=== PATIENT | female | born 1965 | race African-American/Black ===

== ENCOUNTER 2016-05-28 09:37 | Emergency (ER) | payer OTHER ==
[~2016-05-28] VITALS: Ht 162.6 cm; Wt 83.9 kg
[~2016-05-28 09:37] MED LIST: BUPR150T15 PO; HYDR-971 PO; LEVO125T5 PO; SERT50TA PO
[2016-05-28 10:39] VITALS: BP 149/86
[2016-05-28] MEDS ORDERED: HYDR-971 PO (11:10)
--- NOTE | 2016-05-28 11:12 | PHYS DOC ---
Past Medical History Past Medical History: Hypothyroid Additional Past Medical Histor: Radiation pill for thyroid. Past Surgical History: , Hysterectomy Additional Past Surgical Histo: PARTIAL HYSTERECTOMY Alcohol Use: None Drug Use: None Adult General Chief Complaint Chief Complaint: [facility] HPI Patient is a 51 year old female who presents emergency room with a complaint of ongoing, atraumatic right knee pain for several weeks. Patient states that she does have a history of osteoarthritis. She states that she has had a previous injection in her right knee by her primary care doctor. She states this was approximately a year ago. She states that it did provide some pain relief for a couple of weeks, but it has not completely helped her. Patient has not seen an orthopedic doctor in the past. Patient states that she is a [employer] and stays on her feet quite often. She does perform a lot of deep knee bending and kneeling, squatting and lifting as well. Review of Systems Review of Systems Constitutional: Denies fever or chills [] Eyes: Denies change in visual acuity, redness, or eye pain [] HENT: Denies nasal congestion or sore throat [] Respiratory: Denies cough or shortness of breath [] Cardiovascular: No additional information not addressed in HPI [] GI: Denies abdominal pain, nausea, vomiting, bloody stools or diarrhea [] : Denies dysuria or hematuria [] Musculoskeletal: Denies back pain or joint pain [] Integument: Denies rash or skin lesions [] Neurologic: Denies headache, focal weakness or sensory changes [] Endocrine: Denies polyuria or polydipsia [] Allergies Allergies Allergies Coded Allergies Type Severity Reaction Last Updated Verified Sulfa (Sulfonamide Antibiotics) Allergy Severe angioedema, hives 01/02/16 Yes Physical Exam Physical Exam Constitutional: Well developed, well nourished, no acute distress, non-toxic appearance. [] HENT: Normocephalic, atraumatic, bilateral external ears normal, oropharynx moist, no oral exudates, nose normal. [] Eyes: PERRLA, EOMI, conjunctiva normal, no discharge. [] Neck: Normal range of motion, no tenderness, supple, no stridor. [] Cardiovascular:Heart rate regular rhythm, no murmur [] Lungs & Thorax: Bilateral breath sounds clear to auscultation [] Abdomen: Bowel sounds normal, soft, no tenderness, no masses, no pulsatile masses. [] Skin: Warm, dry, no erythema, no rash. [] Back: No tenderness, no CVA tenderness. [] Extremities: Right knee is normal in appearance without fusiform swelling, erythema and is not hot to the touch. Patient does not have a high riding patella. Negative ballottement. Flexor and extensor mechanism is intact. There is lateral and medial joint line tenderness without palpable defect, deformity, instability or crepitus. Lower extremity is neurovascularly intact with capillary refill less than 2 seconds in her toes. Neurologic: Alert and oriented X 3, normal motor function, normal sensory function, no focal deficits noted. [] Psychologic: Affect normal, judgement normal, mood normal. [] Current Patient Data Vital Signs Vital Signs Date Time Temp Pulse Resp B/P Pulse Ox O2 Delivery O2 Flow Rate FiO2 05/28/16 10:39 97.7 90 20 100 Room Air 97.7 EKG EKG [] Radiology/Procedures Radiology/Procedures [] Course & Med Decision Making Course & Med Decision Making Pertinent Labs and Imaging studies reviewed. (See chart for details) [] Dragon Disclaimer Dragon Disclaimer This electronic medical record was generated, in whole or in part, using a voice recognition dictation system. Departure Departure Impression: Primary Impression: Knee pain, chronic Disposition: 01 HOME, SELF-CARE Condition: Referrals: VERONIKA VALENTINO (PCP) CISCO CROCKER II, MD Patient Instructions: Knee Pain, [id number], Osteoarthritis Additional Instructions: 1. Take the medication as prescribed. 2. Review the discharge instructions; particularly reasons to return to the emergency department. 3. An orthopedic doctors number is been provided to you for follow-up care. Be sure to call tomorrow to schedule an appointment. You may also choose to follow- up with your primary care doctor as well. 4. Avoid deep knee bending, kneeling and squatting is much as possible. Scripts Hydrocodone/Apap 5-325 ([place] 5-325 Tablet)1 Each Tablet1 Tab PO PRN Q6HRS PRN PAIN #15 TAB Prov:JUNIE PARKINSON 05/28/16 JUNIE PARKINSON May 28, 2016 11:12
== END 2016-05-28 11:44 | disposition home or self-care (01) ==
LOC: ER 09:37
DX: G89.29 Other chronic pain (principal); M25.561 Pain in right knee; E03.9 Hypothyroidism, unspecified; M19.90 Unspecified osteoarthritis, unspecified site; Z90.711 Acquired absence of uterus with remaining cervical stump; Z88.2 Allergy status to sulfonamides
CPT/HCPCS: 99283

== ENCOUNTER 2016-06-10 15:28 | Emergency (ER) | payer OTHER ==
[2016-06-10 15:31] VITALS: BP 169/88
[2016-06-10] MEDS ORDERED: PENI500T PO (15:45)
[2016-06-10] MEDS ORDERED: HYDR-971 PO (15:45)
--- NOTE | 2016-06-10 15:45 | PHYS DOC ---
Past Medical History Past Medical History: Hypothyroid Additional Past Medical Histor: Radiation pill for thyroid. Past Surgical History: , Hysterectomy Additional Past Surgical Histo: PARTIAL HYSTERECTOMY Additional Information: nonsmoker Alcohol Use: None Drug Use: None Adult General Chief Complaint Chief Complaint: DENTAL PROBLEM HPI HPI Patient is a 51 year old female who presents with left mandibular dental pain for 3 days. The affected tooth was previously broken, but her pain increased when she was chewing gum. She has an appointment with a dentist in 2 days to have the tooth extracted. She denies fever or swelling of the gums. She has been taking ibuprofen without relief of her pain. Her PCP is Dr. Valentino. Review of Systems Review of Systems Constitutional: Denies fever or chills. [] Eyes: Denies change in visual acuity, redness, or eye pain. [] HENT: Denies ear pain, nasal congestion or sore throat. Reports dental pain. Integument: Denies rash or skin lesions. [] Neurologic: Denies headache, focal weakness or sensory changes. [] Allergies Allergies Allergies Coded Allergies Type Severity Reaction Last Updated Verified Sulfa (Sulfonamide Antibiotics) Allergy Severe angioedema, hives 01/02/16 Yes Physical Exam Physical Exam Constitutional: Well developed, well nourished, no acute distress, non-toxic appearance. [] HENT: Normocephalic, atraumatic, bilateral external ears normal, oropharynx moist, no oral exudates, nose normal. Bilateral TMs without erythema or bulging. There is no posterior pharyngeal erythema or tonsillar edema. Tooth # 19 is broken and tender without surrounding gingival edema or dental abscess. Eyes: PERRLA, EOMI, conjunctiva normal, no discharge. [] Neck: Normal range of motion, no tenderness, supple, no stridor. [] Skin: Warm, dry, no erythema, no rash. [] Neurologic: Alert and oriented X 3, normal motor function, normal sensory function, no focal deficits noted. [] Psychologic: Affect normal, judgement normal, mood normal. [] Current Patient Data Vital Signs Vital Signs Date Time Temp Pulse Resp B/P Pulse Ox O2 Delivery O2 Flow Rate FiO2 06/10/16 15:31 98.1 96 22 100 Room Air 98.1 EKG EKG [] Radiology/Procedures Radiology/Procedures [] Course & Med Decision Making Course & Med Decision Making Pertinent Labs and Imaging studies reviewed. (See chart for details) [] Dragon Disclaimer Dragon Disclaimer This electronic medical record was generated, in whole or in part, using a voice recognition dictation system. Departure Departure Impression: Primary Impression: Pain, dental Disposition: 01 HOME, SELF-CARE Condition: STABLE Referrals: VERONIKA VALENTINO (PCP) Patient Instructions: Dental Fracture, Dental Pain, [id number] Additional Instructions: Please complete all of the prescribed antibiotics, even if you are feeling better. Please take the prescribed pain medication as directed. Do not drive or operate heavy machinery while taking pain medication. Please follow up with the dentist as previously scheduled to have your tooth extracted. Return to the emergency department if you have any new or concerning symptoms. Scripts Hydrocodone/Apap 5-325 ([place] 5-325 Tablet)1 Each Tablet1 Tab PO PRN Q6HRS PRN PAIN #15 TAB Prov:AYSHA HERNANDEZ 06/10/16 Penicillin V Potassium 500 Mg Tablet1 Tab PO TID #30 TAB Prov:AYSHA HERNANDEZ 06/10/16 AYSHA HERNANDEZ Jun 10, 2016 15:45
== END 2016-06-10 15:58 | disposition home or self-care (01) ==
LOC: ER 15:28
DX: K08.89 Other specified disorders of teeth and supporting structures (principal); Z88.2 Allergy status to sulfonamides; E03.9 Hypothyroidism, unspecified
CPT/HCPCS: 99283

== ENCOUNTER 2016-07-01 14:54 | Emergency (ER) | payer OTHER ==
[~2016-07-01 14:54] MED LIST changes: +PENI500T PO
[2016-07-01 15:37] VITALS: BP 148/91
[2016-07-01] MEDS ORDERED: AMOX500C PO (15:51)
[2016-07-01] MEDS ORDERED: HYDR-971 PO (15:51)
--- NOTE | 2016-07-01 15:51 | PHYS DOC ---
Past Medical History Past Medical History: Hypothyroid Additional Past Medical Histor: Radiation pill for thyroid. Past Surgical History: , Hysterectomy Additional Past Surgical Histo: PARTIAL HYSTERECTOMY Alcohol Use: None Drug Use: None Adult General Chief Complaint Chief Complaint: DENTAL PROBLEM HPI HPI Patient is a 51 year old female presents the emergency department with complaint of ongoing left-sided lower jaw and dental pain for approximately week. Patient does have a history of dental caries. Patient was actually seen here June 10 with the same complaint. She states that she went to [facility] and was advised that she needs to see an oral surgeon to remove the tooth. Review of Systems Review of Systems Constitutional: Denies fever or chills [] Eyes: Denies change in visual acuity, redness, or eye pain [] HENT: Denies nasal congestion or sore throat [] Respiratory: Denies cough or shortness of breath [] Cardiovascular: No additional information not addressed in HPI [] GI: Denies abdominal pain, nausea, vomiting, bloody stools or diarrhea [] : Denies dysuria or hematuria [] Musculoskeletal: Denies back pain or joint pain [] Integument: Denies rash or skin lesions [] Neurologic: Denies headache, focal weakness or sensory changes [] Endocrine: Denies polyuria or polydipsia [] Allergies Allergies Allergies Coded Allergies Type Severity Reaction Last Updated Verified Sulfa (Sulfonamide Antibiotics) Allergy Severe angioedema, hives 01/02/16 Yes Physical Exam Physical Exam Constitutional: Well developed, well nourished, no acute distress, non-toxic appearance. [] HENT: Normocephalic, atraumatic, bilateral external ears normal, oropharynx moist, no oral exudates, nose normal. There is no trismus. Patient's dentition is otherwise in good repair. Patient does have a cavity in the second left mandibular molar. There is no purulent drainage. There is no surrounding gingival swelling or abscess. Eyes: PERRLA, EOMI, conjunctiva normal, no discharge. [] Neck: Normal range of motion, no tenderness, supple, no stridor. [] Cardiovascular:Heart rate regular rhythm, no murmur [] Lungs & Thorax: Bilateral breath sounds clear to auscultation [] Abdomen: Bowel sounds normal, soft, no tenderness, no masses, no pulsatile masses. [] Skin: Warm, dry, no erythema, no rash. [] Back: No tenderness, no CVA tenderness. [] Extremities: No tenderness, no cyanosis, no clubbing, ROM intact, no edema. [] Neurologic: Alert and oriented X 3, normal motor function, normal sensory function, no focal deficits noted. [] Psychologic: Affect normal, judgement normal, mood normal. [] Current Patient Data Vital Signs Vital Signs Date Time Temp Pulse Resp B/P Pulse Ox O2 Delivery O2 Flow Rate FiO2 07/01/16 15:37 98.0 83 18 100 Room Air 98.0 EKG EKG [] Radiology/Procedures Radiology/Procedures [] Course & Med Decision Making Course & Med Decision Making Pertinent Labs and Imaging studies reviewed. (See chart for details) [] Dragon Disclaimer Dragon Disclaimer This electronic medical record was generated, in whole or in part, using a voice recognition dictation system. Departure Departure Impression: Primary Impression: Pain, dental Additional Impression: Dental caries Disposition: HOME, SELF-CARE Condition: GOOD Referrals: VERONIKA VALENTINO (PCP) Patient Instructions: Dental Caries-Brief, Dental Pain, [id number] Additional Instructions: 1. Take the medication as prescribed. 2. Use the dental resource sheet to schedule an appointment so that she may receive definitive dental care. 3. Follow-up with your primary care doctor for any possible refills on medications. 4. Review the discharge instructions provided for self-care and reasons to return to the emergency department. Scripts Amoxicillin 500 Mg Capsule1 Cap PO TID #30 CAP Prov:JUNIE PARKINSON 07/01/16 Hydrocodone/Apap 5-325 ([place] 5-325 Tablet)1 Each Tablet1 Tab PO PRN Q6HRS PRN PAIN #15 TAB Prov:JUNIE PARKINSON 07/01/16 Problem Qualifiers JUNIE PARKINSON Jul 01, 2016 15:51
== END 2016-07-01 16:05 | disposition home or self-care (01) ==
LOC: ER 14:54
DX: K02.9 Dental caries, unspecified (principal); K08.89 Other specified disorders of teeth and supporting structures; R68.84 Jaw pain; E03.9 Hypothyroidism, unspecified; Z88.2 Allergy status to sulfonamides
CPT/HCPCS: 99283

== ENCOUNTER 2016-12-10 21:32 | Emergency (ER) | payer SELFPAY ==
[~2016-12-10] VITALS: Ht 162.6 cm; Wt 83.9 kg
[~2016-12-10 21:32] MED LIST changes: +AMOX500C PO
[2016-12-10 22:50] VITALS: BP 149/80
[2016-12-10] MEDS ORDERED: HYDR-971 PO (23:44)
[2016-12-10] MEDS ORDERED: CYCL5TAB PO (23:44)
--- NOTE | 2016-12-10 23:45 | PHYS DOC ---
Past Medical History Past Medical History: Hypothyroid, Other Additional Past Medical Histor: Radiation pill for thyroid. Past Surgical History: , Hysterectomy Additional Past Surgical Histo: PARTIAL HYSTERECTOMY Alcohol Use: None Drug Use: None Adult General Chief Complaint Chief Complaint: LOWER BACK PAIN OR INJURY HPI HPI Patient is a 51 year old female who presents with lower back pain. She states yesterday she was doing squats & felt sudden muscle strain in her lower back. She has had bilateral lower back pain since that time. No fall. Reports sharp pain radiating down her legs. She denies fevers/chills, abdominal pain, dysuria /hematuria, bowel/bladder incontinence/retention, saddle anesthesia, lower extremity numbness/weakness. She has history of similar injury with sciatica & this feels similar. No previous back surgery. Review of Systems Review of Systems Constitutional: Denies fever or chills HENT: Denies nasal congestion or sore throat Respiratory: Denies cough or shortness of breath Cardiovascular: Denies chest pain GI: Denies abdominal pain, nausea, vomiting : Denies dysuria or hematuria Musculoskeletal: Reports back pain Integument: Denies rash or skin lesions Neurologic: Denies headache, focal weakness or sensory changes Allergies Allergies Allergies Coded Allergies Type Severity Reaction Last Updated Verified Sulfa (Sulfonamide Antibiotics) Allergy Severe angioedema, hives 01/02/16 Yes Physical Exam Physical Exam Constitutional: Well developed, well nourished, no acute distress, non-toxic appearance. HENT: Normocephalic, atraumatic, bilateral external ears normal, oropharynx moist, nose normal. Eyes: conjunctiva normal, no discharge. Cardiovascular: RRR, no murmurs, no edema. Lungs & Thorax: LCTAB, no wheezing, no respiratory distress. Abdomen: soft, nontender, nondistended. Skin: Warm, dry, no erythema, no rash. Back: generalized lumbar tenderness without focal spinal tenderness, no step offs, pain predominantly in paraspinous muscles bilaterally, increases with bilateral straight leg raise. Extremities: dp/pt 2+ bilaterally, symmetric strength/sensation to LE. Neurologic: Alert and oriented X 3, no focal deficits noted. Psychologic: Affect normal, judgement normal, mood normal. Current Patient Data Vital Signs Vital Signs Date Time Temp Pulse Resp B/P (MAP) Pulse Ox O2 Delivery O2 Flow Rate FiO2 12/10/16 22:50 98.4 73 18 100 Room Air 98.4 EKG EKG [] Radiology/Procedures Radiology/Procedures [] Course & Med Decision Making Course & Med Decision Making Pertinent Labs and Imaging studies reviewed. (See chart for details) The patient presents with lower back pain. No trauma to suggest bony injury. Recommend supportive care with rest, hydration, ibuprofen q8 hours, flexeril for muscle spasm & norco for pain. No drinking alcohol or driving while taking norco. Follow up with PCP in 1-2 weeks if not improving. Come back for symptoms of cauda equina syndrome or otherwise worsening condition. Discharged home in stable condition. [] Dragon Disclaimer Dragon Disclaimer This electronic medical record was generated, in whole or in part, using a voice recognition dictation system. Departure Departure Impression: Primary Impression: Lumbar strain Disposition: 01 HOME, SELF-CARE Condition: STABLE Referrals: VERONIKA VALENTINO (PCP) Patient Instructions: Low Back Strain with Rehab-SportsMed Additional Instructions: You were seen in the emergency department today for back strain. This will likely get better on its own. Please rest, apply heating pad or ice, take ibuprofen 600 mg every 8 hours, use Flexeril for muscle spasm and Tye for severe pain. No drinking alcohol or driving while taking Tye. Follow-up with primary care physician in one to 2 weeks if not improving. Return to the emergency department for loss of control of bowels or bladder, numbness or weakness in arms or legs, any otherwise worsening condition. Scripts Hydrocodone/Apap 5-325 (NORCO 5-325 TABLET) 1 Each Tablet 1 TAB PO PRN Q6HRS Y for PAIN, #10 TAB 0 Refills Prov: MIRIAN NEIL MD 12/10/16 Cyclobenzaprine Hcl (CYCLOBENZAPRINE HCL) 5 Mg Tablet 1 TAB PO TID Y for MUSCLE SPASMS, #10 TAB Prov: MIRIAN NEIL MD 12/10/16 MIRIAN NEIL MD Dec 10, 2016 23:45
== END 2016-12-11 00:09 | disposition home or self-care (01) ==
LOC: ER 21:32
DX: S39.012A Strain of muscle, fascia and tendon of lower back, initial encounter (principal); E03.9 Hypothyroidism, unspecified; Z88.2 Allergy status to sulfonamides; X58.XXXA Exposure to other specified factors, initial encounter; Y93.89 Activity, other specified; Y92.89 Other specified places as the place of occurrence of the external cause; Y99.8 Other external cause status
CPT/HCPCS: 99283

== ENCOUNTER 2017-03-08 15:01 | Inpatient (IN) | payer SELFPAY ==
[~2017-03-08] VITALS: Ht 162.6 cm; Wt 79.0 kg
[~2017-03-08 15:01] MED LIST changes: +CYCL5TAB PO
--- NOTE | 2017-03-08 15:28 | EKG ---
[facility] [address] [place] [address] Test Date: 2017-03-08 Test Time: 15:14:10 Pat Name: HERB HARMAN Department: Room: Gender: F Intake Coordinator: : 1965 Requested By: AYSHA DOAN Order Number: [id number] Reading MD: Measurements Intervals [place] Rate: 124 P: 40 OK: 144 QRS: 18 QRSD: 82 T: 43 QT: 316 QTc: 458 Interpretive Statements SINUS TACHYCARDIA OTHERWISE NORMAL ECG RI6.01 Unconfirmed report No previous ECG available for comparison
[2017-03-08] MEDS ORDERED: IV NORMAL SALINE 1000ML BAG 1,000 ML IV ONE ×2 (15:30→18:15)
[2017-03-08 15:49] LABS: BARBITURATES NEG (NEG); BENZODIAZEPINES NEG (NEG); CANNABINOIDS NEG (NEG); COCAINE NEG (NEG); METHADONE NEG (NEG); OPIATES POS (NEG); PHENCYCLIDINE NEG (NEG)
[2017-03-08 15:51] LABS: BASO # 0.1 x10^3/uL (0.0-0.2); BASO % 1 % (0-3); EOS % 1 % (0-3); HEMATOCRIT 29.1 % (36.0-47.0); HEMOGLOBIN 9.6 g/dL (12.0-15.5); LYMPH % 27 % (24-48); MEAN CORPUSCULAR HEMOGLOBIN 28 pg (25-35); MEAN CORPUSCULAR HGB CONC 33 g/dL (31-37); MEAN CORPUSCULAR VOLUME 86 fL (79-100); MONO % 8 % (0-9); NEUT % 63 % (31-73); PLATELET COUNT 370 x10^3/uL (140-400); RED BLOOD COUNT 3.39 x10^6/uL (3.50-5.40); WHITE BLOOD COUNT 7.4 x10^3/uL (4.0-11.0)
[2017-03-08 16:04] LABS: INR 1.1 (0.8-1.1); PROTHROMBIN TIME PATIENT 13.7 SEC (11.7-14.0)
[2017-03-08 16:07] LABS: CALCIUM 9.3 mg/dL (8.5-10.1); POTASSIUM 3.5 mmol/L (3.5-5.1)
--- NOTE | 2017-03-08 16:08 | RAD ---
Indication seizures. Suspect aspiration pneumonia. Protocol study. A single view of the chest was obtained. Comparison is made to a study 07/13/2010. The heart and pulmonary vessels appear normal. The lungs are clear. There is no pleural fluid or pneumothorax. The bony structures appear grossly intact. A significant change in the appearance of the chest compared to the previous exam is not seen. IMPRESSION: No acute or focal process is seen in the chest.
--- NOTE | 2017-03-08 16:21 | RAD ---
CT HEAD WITHOUT [id number]/19/2017 5:17 PM Indication: Possible seizure. Comparison: None Procedure: Multidetector CT imaging of the head was performed without the administration of contrast. Findings: There is no evidence of acute intracranial hemorrhage. There is no evidence of acute territorial infarction. Please note that CT is limited for evaluation of acute ischemia. No mass effect or midline shift is identified . The ventricles and basilar cisterns have an appropriate appearance. No abnormal extra-axial fluid collections are seen. No acute osseous changes are identified. Impression: No evidence of acute intracranial abnormality PQRS Compliance Statement: One or more of the following individualized dose reduction techniques were utilized for this examination: 1. Automated exposure control 2. Adjustment of the mA and/or kV according to patient size 3. Use of iterative reconstruction technique
[2017-03-08 16:24] LABS: ALBUMIN 3.7 g/dL (3.4-5.0); TOTAL BILIRUBIN 0.1 mg/dL (0.2-1.0); TOTAL PROTEIN 7.4 g/dL (6.4-8.2)
[2017-03-08] MEDS ORDERED: ACETAMINOPHEN 325 MG TABLET. PO PRN (18:15)
[2017-03-08] MEDS ORDERED: ACETAMINOPHEN 500 MG TABLET PO ONE (18:15)
[2017-03-08] MEDS ORDERED: ONDANSETRON PF 4 MG/2 ML VIAL. IV PRN (18:15)
[2017-03-08 19:30] VITALS: BP 148/95
[2017-03-08] MEDS: levETIRAcetam 500 MG TABLET PO SCH (19:59)
[2017-03-08] MEDS: IV NORMAL SALINE 1000ML BAG 1,000 ML IV SCH (20:00)
--- NOTE | 2017-03-08 20:01 | ED.ADGEN ---
Past Medical History Past Medical History: Hypothyroid, Other Additional Past Medical Histor: Radiation pill for thyroid. Past Surgical History: , Hysterectomy Additional Past Surgical Histo: PARTIAL HYSTERECTOMY Alcohol Use: None Drug Use: None Adult General Chief Complaint Chief Complaint: SEIZURE HPI HPI Patient is a 51 year old woman history of thyroid ablation several years ago due to hyperthyroidism, currently on Synthroid, who presents emergency Department with a report of a possible seizure. Per report of patient's significant other at bedside, patient was a seated passenger in the front seat of the vehicle, he states he looked over and saw the patient "rigid and shaking ", patient was unresponsive that time. He states that this episode of rigidity lasted for a few moments, and patient then experienced some confusion. Upon arrival to the emergency department, patient is awake alert and oriented 3, moving all extremities, complaining of headache and of "feeling really tired". Patient states the headache is located in the frontal region, denies any weakness, numbness, tingling has experienced no loss of bowel or bladder control , no injuries, no chest pain or shortness breath, states that she was feeling well until the episode occurred. No history of seizure disorder, denies any injuries, any recent travel or surgery, any swelling of the extremities, any sick contacts or exposures, any neck pain, any drugs, alcohol or cigarettes. Review of Systems Review of Systems Constitutional: Denies fever or chills. []Fatigue. Eyes: Denies change in visual acuity. [] HENT: Denies nasal congestion or sore throat. [] Respiratory: Denies cough or shortness of breath. [] Cardiovascular: Denies chest pain or edema. [] GI: Denies abdominal pain, nausea, vomiting, bloody stools or diarrhea. [] : Denies dysuria. [] Musculoskeletal: Denies back pain or joint pain. [] Integument: Denies rash. [] Neurologic: Denies focal weakness or sensory changes. [] Frontal headache, possible seizure activity. Endocrine: Denies polyuria or polydipsia. [] Lymphatic: Denies swollen glands. [] Psychiatric: Denies depression or anxiety. [] Current Medications Current Medications Current Medications Medications (Trade) Dose Ordered Sig/Evelyne Start Time Stop Time Status Last Admin Dose Admin Sodium Chloride 1,000 ml @ 1,000 mls/hr 1X ONCE 03/08/17 15:30 03/08/17 16:29 DC 03/08/17 15:29 1,000 MLS/HR Allergies Allergies Allergies Coded Allergies Type Severity Reaction Last Updated Verified Sulfa (Sulfonamide Antibiotics) Allergy Severe angioedema, hives 01/02/16 Yes Physical Exam Physical Exam Constitutional: Well developed, well nourished, no acute distress, non-toxic appearance. [] HENT: Normocephalic, atraumatic, bilateral external ears normal, oropharynx moist, no oral exudates, nose normal. [] Eyes: PERRLA, EOMI, conjunctiva normal, no discharge. [] Neck: Normal range of motion, no tenderness, supple, no stridor. [] Cardiovascular:Heart rate regular rhythm, no murmur, S1, S2, no rubs or gallops , tachycardic. [] Lungs & Thorax: Bilateral breath sounds clear to auscultation, no wheezing, rhonchi, rales. No chest wall crepitus or tenderness. [] Abdomen: Bowel sounds normal, soft, no tenderness, no rebound, no rigidity, no guarding, no masses, no pulsatile masses. [] Skin: Warm, dry, no erythema, no rash. [] Back: No tenderness, no CVA tenderness. [] Extremities: No tenderness, no cyanosis, no clubbing, ROM intact, no edema. Negative Homans sign.[] Neurologic: Alert and oriented X 3, normal motor function, normal sensory function, no focal deficits noted. []5 out of 5 strength in all extremities, normal sensation, normal cranial nerves. Psychologic: Affect normal, judgement normal, mood normal. [] Current Patient Data Vital Signs Vital Signs Date Time Temp Pulse Resp B/P (MAP) Pulse Ox O2 Delivery O2 Flow Rate FiO2 03/08/17 17:09 100 99 03/08/17 15:39 20 03/08/17 15:03 98.1 119/80 (93) Room Air 98.1 Lab Values Laboratory Tests Test 03/08/17 15:17 03/08/17 15:33 03/08/17 15:41 White Blood Count 7.4 x10^3/uL (4.0-11.0) Red Blood Count 3.39 x10^6/uL (3.50-5.40) L Hemoglobin 9.6 g/dL (12.0-15.5) L Hematocrit 29.1 % (36.0-47.0) L Mean Corpuscular Volume 86 fL (79-100) Mean Corpuscular Hemoglobin 28 pg (25-35) Mean Corpuscular Hemoglobin Concent 33 g/dL (31-37) Red Cell Distribution Width 12.0 % (11.5-14.5) Platelet Count 370 x10^3/uL (140-400) Neutrophils (%) (Auto) 63 % (31-73) Lymphocytes (%) (Auto) 27 % (24-48) Monocytes (%) (Auto) 8 % (0-9) Eosinophils (%) (Auto) 1 % (0-3) Basophils (%) (Auto) 1 % (0-3) Neutrophils # (Auto) 4.7 x10^3uL (1.8-7.7) Lymphocytes # (Auto) 2.0 x10^3/uL (1.0-4.8) Monocytes # (Auto) 0.6 x10^3/uL (0.0-1.1) Eosinophils # (Auto) 0.1 x10^3/uL (0.0-0.7) Basophils # (Auto) 0.1 x10^3/uL (0.0-0.2) Prothrombin Time 13.7 SEC (11.7-14.0) Prothrombin Time INR 1.1 (0.8-1.1) PTT 29 SEC (24-38) Troponin I Quantitative < 0.017 ng/mL (0.000-0.055) Urine Opiates Screen Pos (NEG) Urine Methadone Screen Neg (NEG) Urine Barbiturates Neg (NEG) Urine Phencyclidine Screen Neg (NEG) Urine Amphetamine/Methamphetamine Neg (NEG) Urine Benzodiazepines Screen Neg (NEG) Urine Cocaine Screen Neg (NEG) Urine Cannabinoids Screen Neg (NEG) Urine Ethyl Alcohol Neg (NEG) Sodium Level 140 mmol/L (136-145) Potassium Level 3.5 mmol/L (3.5-5.1) Chloride Level 102 mmol/L (98-107) Carbon Dioxide Level 23 mmol/L (21-32) Anion Gap 15 (6-14) H Blood Urea Nitrogen 14 mg/dL (7-20) Creatinine 1.0 mg/dL (0.6-1.0) Estimated GFR (Cockcroft-Gault) 71.0 BUN/Creatinine Ratio 14 (6-20) Glucose Level 99 mg/dL (70-99) Lactic Acid Level 5.8 mmol/L (0.4-2.0) *H Calcium Level 9.3 mg/dL (8.5-10.1) Total Bilirubin 0.1 mg/dL (0.2-1.0) L Aspartate Amino Transferase (AST) 16 U/L (15-37) Alanine Aminotransferase (ALT) 20 U/L (14-59) Alkaline Phosphatase 55 U/L (46-116) Total Protein 7.4 g/dL (6.4-8.2) Albumin 3.7 g/dL (3.4-5.0) Albumin/Globulin Ratio 1.0 (1.0-1.7) Thyroid Stimulating Hormone (TSH) 0.212 uIU/mL (0.358-3.74) L Laboratory Tests 03/08/17 15:17 Laboratory Tests 03/08/17 15:41 EKG EKG EC: Sinus tachycardia, heart rate 124 beats/minute, upright axis, QTC of 458, MI 144, QR sedated 82, no ST elevations or depressions, no evidence of acute ST abnormalities aside from sinus tachycardia normal ECG. As interpreted by me. Radiology/Procedures Radiology/Procedures [][facility] [address] [place] [address] IMAGING REPORT Signed PATIENT: HERB HARMAN ACCOUNT: [id number] : 1965 LOCATION: ER AGE: 51 SEX: F EXAM STATUS: REG ER ORD. PHYSICIAN: AYSHA DOAN DO REASON: ? HAZEL PROCEDURE: CT HEAD WO CONTRAST CT HEAD WITHOUT [id number]/19/2017 5:17 PM Indication: Possible seizure. Comparison: None Procedure: Multidetector CT imaging of the head was performed without the administration of contrast. Findings: There is no evidence of acute intracranial hemorrhage. There is no evidence of acute territorial infarction. Please note that CT is limited for evaluation of acute ischemia. No mass effect or midline shift is identified . The ventricles and basilar cisterns have an appropriate appearance. No abnormal extra-axial fluid collections are seen. No acute osseous changes are identified. Impression: No evidence of acute intracranial abnormality PQRS Compliance Statement: One or more of the following individualized dose reduction techniques were utilized for this examination: 1. Automated exposure control 2. Adjustment of the mA and/or kV according to patient size 3. Use of iterative reconstruction technique [facility] [address] [place] [address] IMAGING REPORT Signed PATIENT: HERB HARMAN ACCOUNT: [id number] : 1965 LOCATION: ER AGE: 51 SEX: F EXAM STATUS: REG ER ORD. PHYSICIAN: AYSHA DOAN DO REASON: ? HAZEL PROCEDURE: CT HEAD WO CONTRAST CT HEAD WITHOUT [id number]/19/2017 5:17 PM Indication: Possible seizure. Comparison: None Procedure: Multidetector CT imaging of the head was performed without the administration of contrast. Findings: There is no evidence of acute intracranial hemorrhage. There is no evidence of acute territorial infarction. Please note that CT is limited for evaluation of acute ischemia. No mass effect or midline shift is identified . The ventricles and basilar cisterns have an appropriate appearance. No abnormal extra-axial fluid collections are seen. No acute osseous changes are identified. Impression: No evidence of acute intracranial abnormality PQRS Compliance Statement: One or more of the following individualized dose reduction techniques were utilized for this examination: 1. Automated exposure control 2. Adjustment of the mA and/or kV according to patient size 3. Use of iterative reconstruction technique DICTATED and SIGNED BY: MICKEY GU MD DATE: 03/08/17 1884 CC: VERONIKA VALENTINO; AYSHA DOAN DO ~ Course & Med Decision Making Course & Med Decision Making Pertinent Labs and Imaging studies reviewed. (See chart for details) Patient's report of events preceding arrival in the ED are concerning for new onset seizure. Seizure precautions placed, patient received CT of the head, laboratory studies reveal a revealed a lactic of 5.8, with no evidence of infection or other cause. Patient received normal saline IV in the emergency department, states she is feeling much better and reevaluation, neurologic examination remains unremarkable. I did discuss findings as above with Dr. White of neurology, and Dr. Mc on-call for the patient's primary care provider. Patient was accepted as a full admission to Dr. Mc's service, to the medical telemetry floor, per recommendations from neurology, patient initiated on Keppra 500 mg to be given twice a day, first dose in the ED, order placed for EEG and MRI be obtained in the morning. I did discuss all these recommendations as above with the patient, who is agreeable to plan for admission. Repeat lactic ordered, along with and laboratory studies, bridge orders entered per discussion. Patient remained stable and comfortable without recurrence concerning symptoms at time of transfer to the floor. Dragon Disclaimer Dragon Disclaimer This electronic medical record was generated, in whole or in part, using a voice recognition dictation system. Departure Impression: Primary Impression: New onset seizure Additional Impression: Lactic acidosis Disposition: ADMITTED INPATIENT Admitting Physician: Jake Mc Condition: STABLE Problem Qualifiers AYSHA DOAN DO Mar 08, 2017 20:01
[2017-03-08 23:26] VITALS: BP 139/81
[2017-03-08] MEDS ORDERED: TRAM50TA PO (23:34)
[2017-03-09 03:00] VITALS: BP 137/88
[2017-03-09] MEDS: IV NORMAL SALINE 1000ML BAG 1,000 ML IV SCH ×2 (03:29→10:14)
[2017-03-09 05:18] LABS: BASO # 0.1 x10^3/uL (0.0-0.2); BASO % 1 % (0-3); EOS % 1 % (0-3); HEMATOCRIT 29.1 % (36.0-47.0); HEMOGLOBIN 9.4 g/dL (12.0-15.5); LYMPH # 1.9 x10^3/uL (1.0-4.8); LYMPH % 28 % (24-48); MEAN CORPUSCULAR HEMOGLOBIN 28 pg (25-35); MEAN CORPUSCULAR HGB CONC 32 g/dL (31-37); MEAN CORPUSCULAR VOLUME 87 fL (79-100); MONO % 11 % (0-9); NEUT % 60 % (31-73); PLATELET COUNT 346 x10^3/uL (140-400); RED BLOOD COUNT 3.36 x10^6/uL (3.50-5.40); RED CELL DISTRIBUTION WIDTH 12.5 % (11.5-14.5); WHITE BLOOD COUNT 6.8 x10^3/uL (4.0-11.0)
[2017-03-09 05:40] LABS: CALCIUM 8.3 mg/dL (8.5-10.1); CREATININE 0.8 mg/dL (0.6-1.0); GFR 91.9; POTASSIUM 3.2 mmol/L (3.5-5.1)
[2017-03-09 07:15] VITALS: BP 122/74
[2017-03-09] MEDS: levETIRAcetam 500 MG TABLET PO SCH (07:38)
--- NOTE | 2017-03-09 08:44 | PDOC2 ---
NEUROLOGY CONSULT Date of Admission Date of Admission DATE: 03/09/17 TIME: 08:40 Reason for Consult Reason for Consult: Seizure Referring Physician Referring Physician: Dr. Mc Source Source: Caregiver, Chart review, Patient History of Present Illness History of Present Illness The patient is a 51-year-old right-handed female with no prior history of seizures and had a seizure yesterday. The gives an excellent description of a tonic phase followed by clonic convulsions. The seizure lasted 2-5 minutes. There was some tongue biting but no incontinence. The patient denies any history of head injury or stroke. She has been on Wellbutrin for several years as well as hydrocodone. She denies use of alcohol or street drugs. Past Medical History Musculoskeletal: Osteoarthritis (knees) Endocrine: Hypothyroidism (following thyroid ablation) Past Surgical History Past Surgical History: , Hysterectomy Family History Family History: No pertinent hx (negative for seizures) Social History Social History , no alcohol or street drugs Current Medications Current Medications Current Medications Sodium Chloride 1,000 ml @ 1,000 mls/hr 1X ONCE IV Last administered on 03/08 15:29; Start 03/08/17 at 15:30; Stop 03/08/17 at 16:29; Status DC Acetaminophen (Tylenol) 1,000 mg 1X ONCE PO Last administered on 03/08/17 19 :59; Start 03/08/17 at 18:15; Stop 03/08/17 at 18:16; Status DC Sodium Chloride 1,000 ml @ 1,000 mls/hr 1X ONCE IV Last administered on 03/08 18:15; Start 03/08/17 at 18:15; Stop 03/08/17 at 19:14; Status DC Levetiracetam (Keppra) 500 mg BID PO Last administered on 03/09/17 07:38; Start 03/08/17 at 21:00 Ondansetron HCl (Zofran) 4 mg PRN Q8HRS PRN IV NAUSEA/VOMITING; Start at 18:15; Stop 03/09/17 at 18:14 Sodium Chloride 1,000 ml @ 125 mls/hr Q8H IV Last administered on 03/09/17 03:29; Start 03/08/17 at 18:14; Stop 03/09/17 at 18:13 Acetaminophen (Tylenol) 650 mg PRN Q4HRS PRN PO FEVER Last administered on t 07:38; Start 03/08/17 at 18:15; Stop 03/09/17 at 18:14 Active Scripts Active Reported Tramadol Hcl 50 Mg Tablet 1 Tab PO PRN BID PRN Levothyroxine Sodium 125 Mcg Tablet 125 Mcg PO DAILY Allergies Allergies: Coded Allergies: Sulfa (Sulfonamide Antibiotics) (Verified Allergy, Severe, angioedema, hives, 01/02/16) ROS Review of System Patient denies fevers, chills, weight loss, dyspnea, angina, abdominal pain, change in bowels, or dysuria. 14 point review of systems is negative. Physical Exam Physical Examination PHYSICAL EXAMINATION: Vital signs: see above. General appearance is normal and in no acute distress. HEENT: Normocephalic and nontraumatic. Eyes, nose, ears, and throat are unremarkable. Neck is supple. No lymphadenopathy. No bruits are heard over the carotid artery. No crepitus. NEUROLOGICAL EXAMINATION: Mental Status Examination: Alert. Oriented to time, place, and person. Answers questions and follows commends. Pupils are equal round and reactive to light and accommodation. Extraocular movements are intact. Visual field exam shows no defect on the direct confrontation. No motor or sensory deficits on the facial exam. Uvula in the midline and the soft palate elevated symmetrically. No deviation of the tongue to any direction. Gross hearing is normal. Shoulder shrug normal. Muscle tone is normal. Muscle strength is 5. Deep tendon reflexes are 2+ all around. Plantar reflex is with flexion response bilaterally. [id number]-[id number] test performance is accurate. Tandem walk test is accurate. Alternative movements are accurate. Romberg test is negative. Gait is normal. Sensory exam shows no deficits. No cerebellar signs are elicited. Vitals VITALS Vital Signs Date Time Temp Pulse Resp B/P (MAP) Pulse Ox O2 Delivery O2 Flow Rate FiO2 03/09/17 07:45 Room Air 03/09/17 07:15 98.1 91 16 122/74 (90) 100 98.1 Labs Labs Laboratory Tests Test 03/08/17 15:17 03/08/17 15:33 03/08/17 15:41 03/09/17 04:40 White Blood Count 7.4 x10^3/uL (4.0-11.0) 6.8 x10^3/uL (4.0-11.0) Red Blood Count 3.39 x10^6/uL (3.50-5.40) 3.36 x10^6/uL (3.50-5.40) Hemoglobin 9.6 g/dL (12.0-15.5) 9.4 g/dL (12.0-15.5) Hematocrit 29.1 % (36.0-47.0) 29.1 % (36.0-47.0) Mean Corpuscular Volume 86 fL (79-100) 87 fL (79-100) Mean Corpuscular Hemoglobin 28 pg (25-35) 28 pg (25-35) Mean Corpuscular Hemoglobin Concent 33 g/dL (31-37) 32 g/dL (31-37) Red Cell Distribution Width 12.0 % (11.5-14.5) 12.5 % (11.5-14.5) Platelet Count 370 x10^3/uL (140-400) 346 x10^3/uL (140-400) Neutrophils (%) (Auto) 63 % (31-73) 60 % (31-73) Lymphocytes (%) (Auto) 27 % (24-48) 28 % (24-48) Monocytes (%) (Auto) 8 % (0-9) 11 % (0-9) Eosinophils (%) (Auto) 1 % (0-3) 1 % (0-3) Basophils (%) (Auto) 1 % (0-3) 1 % (0-3) Neutrophils # (Auto) 4.7 x10^3uL (1.8-7.7) 4.0 x10^3uL (1.8-7.7) Lymphocytes # (Auto) 2.0 x10^3/uL (1.0-4.8) 1.9 x10^3/uL (1.0-4.8) Monocytes # (Auto) 0.6 x10^3/uL (0.0-1.1) 0.8 x10^3/uL (0.0-1.1) Eosinophils # (Auto) 0.1 x10^3/uL (0.0-0.7) 0.1 x10^3/uL (0.0-0.7) Basophils # (Auto) 0.1 x10^3/uL (0.0-0.2) 0.1 x10^3/uL (0.0-0.2) Prothrombin Time 13.7 SEC (11.7-14.0) Prothromb Time International Ratio 1.1 (0.8-1.1) Activated Partial Thromboplast Time 29 SEC (24-38) Troponin I Quantitative < 0.017 ng/mL (0.000-0.055) Urine Opiates Screen Pos (NEG) Urine Methadone Screen Neg (NEG) Urine Barbiturates Neg (NEG) Urine Phencyclidine Screen Neg (NEG) Urine Amphetamine/Methamphetamine Neg (NEG) Urine Benzodiazepines Screen Neg (NEG) Urine Cocaine Screen Neg (NEG) Urine Cannabinoids Screen Neg (NEG) Urine Ethyl Alcohol Neg (NEG) Sodium Level 140 mmol/L (136-145) 142 mmol/L (136-145) Potassium Level 3.5 mmol/L (3.5-5.1) 3.2 mmol/L (3.5-5.1) Chloride Level 102 mmol/L (98-107) 108 mmol/L (98-107) Carbon Dioxide Level 23 mmol/L (21-32) 24 mmol/L (21-32) Anion Gap 15 (6-14) 10 (6-14) Blood Urea Nitrogen 14 mg/dL (7-20) 11 mg/dL (7-20) Creatinine 1.0 mg/dL (0.6-1.0) 0.8 mg/dL (0.6-1.0) Estimated GFR (Cockcroft-Gault) 71.0 91.9 BUN/Creatinine Ratio 14 (6-20) Glucose Level 99 mg/dL (70-99) 87 mg/dL (70-99) Lactic Acid Level 5.8 mmol/L (0.4-2.0) 1.3 mmol/L (0.4-2.0) Calcium Level 9.3 mg/dL (8.5-10.1) 8.3 mg/dL (8.5-10.1) Total Bilirubin 0.1 mg/dL (0.2-1.0) Aspartate Amino Transf (AST/SGOT) 16 U/L (15-37) Alanine Aminotransferase (ALT/SGPT) 20 U/L (14-59) Alkaline Phosphatase 55 U/L (46-116) Total Protein 7.4 g/dL (6.4-8.2) Albumin 3.7 g/dL (3.4-5.0) Albumin/Globulin Ratio 1.0 (1.0-1.7) Thyroid Stimulating Hormone (TSH) 0.212 uIU/mL (0.358-3.74) Laboratory Tests Test 03/08/17 15:17 03/08/17 15:33 03/08/17 15:41 03/09/17 04:40 White Blood Count 7.4 x10^3/uL (4.0-11.0) 6.8 x10^3/uL (4.0-11.0) Red Blood Count 3.39 x10^6/uL (3.50-5.40) 3.36 x10^6/uL (3.50-5.40) Hemoglobin 9.6 g/dL (12.0-15.5) 9.4 g/dL (12.0-15.5) Hematocrit 29.1 % (36.0-47.0) 29.1 % (36.0-47.0) Mean Corpuscular Volume 86 fL (79-100) 87 fL (79-100) Mean Corpuscular Hemoglobin 28 pg (25-35) 28 pg (25-35) Mean Corpuscular Hemoglobin Concent 33 g/dL (31-37) 32 g/dL (31-37) Red Cell Distribution Width 12.0 % (11.5-14.5) 12.5 % (11.5-14.5) Platelet Count 370 x10^3/uL (140-400) 346 x10^3/uL (140-400) Neutrophils (%) (Auto) 63 % (31-73) 60 % (31-73) Lymphocytes (%) (Auto) 27 % (24-48) 28 % (24-48) Monocytes (%) (Auto) 8 % (0-9) 11 % (0-9) Eosinophils (%) (Auto) 1 % (0-3) 1 % (0-3) Basophils (%) (Auto) 1 % (0-3) 1 % (0-3) Neutrophils # (Auto) 4.7 x10^3uL (1.8-7.7) 4.0 x10^3uL (1.8-7.7) Lymphocytes # (Auto) 2.0 x10^3/uL (1.0-4.8) 1.9 x10^3/uL (1.0-4.8) Monocytes # (Auto) 0.6 x10^3/uL (0.0-1.1) 0.8 x10^3/uL (0.0-1.1) Eosinophils # (Auto) 0.1 x10^3/uL (0.0-0.7) 0.1 x10^3/uL (0.0-0.7) Basophils # (Auto) 0.1 x10^3/uL (0.0-0.2) 0.1 x10^3/uL (0.0-0.2) Prothrombin Time 13.7 SEC (11.7-14.0) Prothromb Time International Ratio 1.1 (0.8-1.1) Activated Partial Thromboplast Time 29 SEC (24-38) Troponin I Quantitative < 0.017 ng/mL (0.000-0.055) Urine Opiates Screen Pos (NEG) Urine Methadone Screen Neg (NEG) Urine Barbiturates Neg (NEG) Urine Phencyclidine Screen Neg (NEG) Urine Amphetamine/Methamphetamine Neg (NEG) Urine Benzodiazepines Screen Neg (NEG) Urine Cocaine Screen Neg (NEG) Urine Cannabinoids Screen Neg (NEG) Urine Ethyl Alcohol Neg (NEG) Sodium Level 140 mmol/L (136-145) 142 mmol/L (136-145) Potassium Level 3.5 mmol/L (3.5-5.1) 3.2 mmol/L (3.5-5.1) Chloride Level 102 mmol/L (98-107) 108 mmol/L (98-107) Carbon Dioxide Level 23 mmol/L (21-32) 24 mmol/L (21-32) Anion Gap 15 (6-14) 10 (6-14) Blood Urea Nitrogen 14 mg/dL (7-20) 11 mg/dL (7-20) Creatinine 1.0 mg/dL (0.6-1.0) 0.8 mg/dL (0.6-1.0) Estimated GFR (Cockcroft-Gault) 71.0 91.9 BUN/Creatinine Ratio 14 (6-20) Glucose Level 99 mg/dL (70-99) 87 mg/dL (70-99) Lactic Acid Level 5.8 mmol/L (0.4-2.0) 1.3 mmol/L (0.4-2.0) Calcium Level 9.3 mg/dL (8.5-10.1) 8.3 mg/dL (8.5-10.1) Total Bilirubin 0.1 mg/dL (0.2-1.0) Aspartate Amino Transf (AST/SGOT) 16 U/L (15-37) Alanine Aminotransferase (ALT/SGPT) 20 U/L (14-59) Alkaline Phosphatase 55 U/L (46-116) Total Protein 7.4 g/dL (6.4-8.2) Albumin 3.7 g/dL (3.4-5.0) Albumin/Globulin Ratio 1.0 (1.0-1.7) Thyroid Stimulating Hormone (TSH) 0.212 uIU/mL (0.358-3.74) Images Images Head CT: Findings: There is no evidence of acute intracranial hemorrhage. There is no evidence of acute territorial infarction. Please note that CT is limited for evaluation of acute ischemia. No mass effect or midline shift is identified . The ventricles and basilar cisterns have an appropriate appearance. No abnormal extra-axial fluid collections are seen. No acute osseous changes are identified. Impression: No evidence of acute intracranial abnormality Assessment/Plan Assessment/Plan Impression: New onset of seizure Recommendations: Levetiracetam, continue for at least 6 months, side effects discussed MRI of the brain with and without contrast EEG Home later today Follow-up with me in 2 months Seizure precautions discussed Patient understands that she cannot drive until she has gone 6 months without a seizure. Thank you for letting me help with the patient's care. PETER SMITH MD Mar 09, 2017 08:44
--- NOTE | 2017-03-09 14:00 | EEG ---
DATE OF SERVICE: 03/09/2017 ATTENDING PHYSICIAN: Jake Mc MD EEG NUMBER: [id number] performed on 03/09/2017 OBJECTIVE: The patient is a 51-year-old female with new seizure. DESCRIPTION: This is a digital study. Electrodes are placed according to the international 10-20 system. Bipolar and referential montages are available. INTERPRETATION: The waking background consists of 9-10 Hz, 50-100 microvolt activity, symmetrically distributed over parietooccipital regions and reactive to eye opening. Hyperventilation and intermittent photic stimulation are noncontributory. Stage I sleep is achieved with normal electroencephalogram patterns. IMPRESSION: This electroencephalogram with the patient awake and asleep is within normal limits. There is no focal, paroxysmal, or epileptiform activity. Thank you for letting us help with the patient's care. PETER SMITH MD DR: HUSAM/gian JOB#: [id number] / [id number] [facility] Jake Mc MD
[2017-03-09] MEDS ORDERED: IBUPROFEN 600 MG TABLET. PO ONE (14:15)
[2017-03-09] MEDS ORDERED: LEVE500T56 PO (14:27)
--- NOTE | 2017-03-09 14:35 | PDOC ---
Provider Note Provider Note Pt seen.H&P dictated. #[id number] DOLORES MOORE MD Mar 09, 2017 14:35
[2017-03-09] MEDS ORDERED: POTASSIUM CHLORIDE 20 MEQ TABLET.ER. PO ONE (14:45)
--- NOTE | 2017-03-09 15:34 | HP ---
ADMIT DATE: 03/08/2017 DATE OF SERVICE: 03/08/2017 PATIENT LOCATION: Room #654 ATTENDING PHYSICIAN: Dr. Mc. PRIMARY CARE PHYSICIAN: Dr. Richards. REASON FOR ADMISSION TO THE HOSPITAL: New onset of seizure. HISTORY OF PRESENT ILLNESS: The patient is a 51-year-old female patient of Dr. Richards. She has history of hypothyroidism and she has no history of seizures. She had it noticed by her that she had a seizure while he was driving her back from work to home, lasted for 2-5 minutes with some tongue biting and no incontinence. The patient was seen in the Emergency Room. She takes Wellbutrin, hydrocodone and Synthroid. The patient had a CT scan, was negative, was admitted overnight for observation, seen by Neurology, had an MRI ordered, an EEG ordered and started on Keppra. The patient was instructed on not driving or climbing heights or doing any swimming activities. PAST MEDICAL HISTORY: Arthritis, hypothyroidism following thyroid ablation. PAST SURGICAL HISTORY: Hysterectomy, . FAMILY HISTORY: Unremarkable for seizures. SOCIAL HISTORY: Works at a alf as a PUNCHING MACHINE OPERATOR. No history of smoking, alcohol, drug abuse. MEDICATIONS: At home, she takes Synthroid 125 mcg, tramadol 50 mg, hydrocodone p.r.n. for pain. ALLERGIES: SULFA causes angioedema. REVIEW OF SYMPTOMS: CARDIAC: No chest pain. GASTROINTESTINAL: No nausea or vomiting. NEUROLOGICAL: No weakness. The rest of the 14-system was reviewed and negative. PHYSICAL EXAMINATION: GENERAL: The patient is pleasant, not in any distress. VITAL SIGNS: Temperature 98, pulse 126, respirations 22, blood pressure 119/80, 96% on room air. HEENT: Head is atraumatic. Pupils equal. Oral cavity: No congestion. NECK: Supple. Thyroid not enlarged. JVD not elevated. CHEST: Symmetrical. CARDIOVASCULAR: S1, S2. LUNGS: Clear. ABDOMEN: Soft. No mass palpable. EXTERNAL GENITALIA: No Serna. RECTAL: Deferred. EXTREMITIES: No calf tenderness. No edema. Pulses 1+. NEUROLOGIC: Cranial nerves intact. Power 5/5 in all extremities. No focal deficits noted. LABORATORY DATA: Shows a white count of 7, hemoglobin 9.6, platelets 370. Electrolytes show sodium 140, potassium 3.5, chloride 102, bicarbonate 23, anion gap 15, BUN 14, creatinine 1.0. Glucose 99. Lactic acid 5.8, slightly high, after the seizure, came back to 1.3 today. Calcium is good 9.3. LFTs were normal. TSH is 0.2 slightly low. INR is 1.1. Toxicology screen was positive for urine opiates. CT head was negative. Chest x-ray was negative. EEG done, no seizure activity. FINAL IMPRESSION: 1. New onset of seizures. 2. Hypothyroidism status post ablation for hyperthyroidism. 3. Depression. PLAN: At this time, the patient was started on Keppra 500 mg twice daily for seizures. EEG was negative. MRI was ordered, in fact MRI was broken today, could not be done. We will do as an outpatient and no driving for 6 months. No climbing heights, no underwater sports activities. Follow up with the primary care, Dr. Richards, in 1 week, probably hold off on thyroid one day a week. DOLORES MC MD DR: JITENDRA/gian JOB#: [id number] / [id number]
--- NOTE | 2017-03-10 21:55 | PDOC ---
Provider Note Provider Note Discharge summary dictated. #[id number] DOLORES MOORE MD Mar 10, 2017 21:55
--- NOTE | 2017-03-11 05:03 | DS ---
DATE OF DISCHARGE: 03/09/2017 REASON FOR ADMISSION TO THE HOSPITAL: Witnessed seizures, new onset. CONSULTATION: Inocencio Milan MD, Neurology. PROCEDURES DONE: 1. CT head. 2. EEG. HOSPITAL COURSE: The patient is a 51-year-old female. The patient works at [employer] in [place]. was driving her back from work to home and she was noticed to have seizure-like activity, tonic-clonic and the patient was brought to the hospital and she was the passenger and the patient had a CT of head which was negative, seen by Neurology, was started on Keppra. EEG was negative for any seizure activity, was recommended MRI. Unfortunately, MRI was broken on that day. The patient was discharged, recommend outpatient. Other laboratory data was unremarkable except the patient's hemoglobin of around 9. It looks like needs further workup as outpatient and the patient is on tramadol, not to take because of the seizures and also TSH was slightly low. She takes Synthroid. Recommend to hold dose 1 day a week on Sundays.No tramadol as it can make seizures worse. FINAL DIAGNOSES: 1. New onset of seizures. 2. Hypokalemia corrected. 3. Hypothyroidism. 4. Lactic acidosis secondary to seizures. DISPOSITION: Home. Recommended no driving for 6 months. Started on Keppra 500 mg twice daily and follow with PCP in 1 week. DOLORES MOORE MD DR: JITENDRA/gian JOB#: [id number] / [id number] VERONIKA Viramontes
== END 2017-03-09 15:38 | disposition home or self-care (01) | DRG 101 ==
LOC: ER 15:01 → 6 SOUTH 17:14
PROVIDERS: ADMIT Internal Medicine; ATTEND Internal Medicine
DX: G40.909 Epilepsy, unspecified, not intractable, without status epilepticus (principal); E87.2 Acidosis; E03.9 Hypothyroidism, unspecified; E87.5 Hyperkalemia; F32.9 Major depressive disorder, single episode, unspecified; E87.6 Hypokalemia; E05.90 Thyrotoxicosis, unspecified without thyrotoxic crisis or storm; M17.0 Bilateral primary osteoarthritis of knee; Z90.710 Acquired absence of both cervix and uterus
CPT/HCPCS: 36415; 70450; 71010; 80048; 80053; 80307; 83605; 84443; 84484; 85025; 85610; 85730; 93005; 95816; 96360; 96361; J7030; 99285-25; G0479

== ENCOUNTER 2017-04-01 14:18 | Emergency (ER) | payer SELFPAY ==
[~2017-04-01] VITALS: Ht 162.6 cm; Wt 78.9 kg
[~2017-04-01 14:18] MED LIST changes: +LEVE500T56 PO; +TRAM50TA PO
[2017-04-01 14:25] VITALS: BP 164/88
--- NOTE | 2017-04-01 14:33 | PHYS DOC ---
Past Medical History Past Medical History: Hypothyroid, Other Additional Past Medical Histor: Radiation pill for thyroid. Past Surgical History: , Hysterectomy Additional Past Surgical Histo: PARTIAL HYSTERECTOMY Alcohol Use: None Drug Use: None Adult General Chief Complaint Chief Complaint: KNEE INJURY HPI HPI Patient is a 51 year old female presents the ED complaining of knee injury times one hour. Patient works as a QUALITY COMPLIANCE CONSULTANT and bent over to empty Serna bag and felt a sharp pain in her right knee. Discussed the pain as sharp. Rates the pain as 8 out of 10. States she has a history of bilateral knee arthritis. Denies head/neck injury, fever, calf pain, leg swelling, recent travel, chest pain or shortness of breath. Review of Systems Review of Systems Constitutional: Denies fever or chills [] Eyes: Denies change in visual acuity, redness, or eye pain [] HENT: Denies nasal congestion or sore throat [] Respiratory: Denies cough or shortness of breath [] Cardiovascular: No additional information not addressed in HPI [] GI: Denies abdominal pain, nausea, vomiting, bloody stools or diarrhea [] : Denies dysuria or hematuria [] Musculoskeletal: Complains of knee injury. Denies back pain. [] Integument: Denies rash or skin lesions [] Neurologic: Denies headache, focal weakness or sensory changes [] Endocrine: Denies polyuria or polydipsia [] All other systems were reviewed and found to be within normal limits, except as documented in this note. Current Medications Current Medications Current Medications Medications (Trade) Dose Ordered Sig/Evelyne Start Time Stop Time Status Last Admin Dose Admin Acetaminophen/ Hydrocodone Bitart (Lortab 5/325) 1 tab 1X ONCE 04/01/17 15:00 04/01/17 15:01 DC 04/01/17 15:00 1 TAB Allergies Allergies Allergies Coded Allergies Type Severity Reaction Last Updated Verified Sulfa (Sulfonamide Antibiotics) Allergy Severe angioedema, hives 01/02/16 Yes Physical Exam Physical Exam Constitutional: Well developed, well nourished, no acute distress, non-toxic appearance. [] HENT: Normocephalic, atraumatic, bilateral external ears normal, oropharynx moist, no oral exudates, nose normal. [] Eyes: PERRLA, EOMI, conjunctiva normal, no discharge. [] Neck: Normal range of motion, no tenderness, supple, no stridor. [] Cardiovascular:Heart rate regular rhythm, no murmur [] Lungs & Thorax: Bilateral breath sounds clear to auscultation [] Abdomen: Bowel sounds normal, soft, no tenderness, no masses, no pulsatile masses. [] Skin: Warm, dry, no erythema, no rash. [] Back: No tenderness, no CVA tenderness. [] Extremities: MILD RIGHT ANTERIOR KNEE TENDERNESS. no cyanosis, no clubbing, ROM intact, no edema. [] Neurologic: Alert and oriented X 3, normal motor function, normal sensory function, no focal deficits noted. [] Psychologic: Affect normal, judgement normal, mood normal. [] Current Patient Data Vital Signs Vital Signs Date Time Temp Pulse Resp B/P (MAP) Pulse Ox O2 Delivery O2 Flow Rate FiO2 04/01/17 15:00 18 97 Room Air 04/01/17 14:25 98.0 96 164/88 (113) 98.0 EKG EKG [] Radiology/Procedures Radiology/Procedures PROCEDURE: KNEE RIGHT 3V EXAM: Right knee, 3 views. HISTORY: Pain. COMPARISON: None. FINDINGS: Frontal, lateral and oblique views of the right knee are obtained. There is mild medial compartment joint space narrowing and medial compartment predominant tricompartmental spurring. There is a tiny joint loose body or intra-articular osteophyte projecting over the medial tibial spine. There is no significant joint effusion. IMPRESSION: 1. Mild medial compartment predominant tricompartmental osteoarthritis of the right knee. 2. No acute osseous finding. [] Course & Med Decision Making Course & Med Decision Making Pertinent Labs and Imaging studies reviewed. (See chart for details) []Discussed imaging findings with patient. Patient's pain improved. Vital stable , no acute distress. Marino wrap placed. Neurovascular intact post placement. Discussed follow-up with orthopedics early next week. Discussed reasons to return to the ED. Patient understands and agrees with plan. Dragon Disclaimer Ramón Disclaimer This electronic medical record was generated, in whole or in part, using a voice recognition dictation system. Departure Departure Impression: Primary Impression: Knee injury Additional Impression: Knee pain, chronic Disposition: 01 HOME, SELF-CARE Condition: IMPROVED Referrals: VERONIKA VALENTINO (PCP) CISCO CROCKER II, MD Patient Instructions: Arthritis, Nonspecific, Knee Pain Scripts Hydrocodone/Apap 5-325 (NORCO 5-325 TABLET) 1 Each Tablet 1 TAB PO BID, #8 TAB Prov: JORGE NEWBERRY 04/01/17 Problem Qualifiers JORGE NEWBERRY Apr 01, 2017 14:33
[2017-04-01] MEDS ORDERED: HYDROcodone/APAP 5/325MG 1 TAB TABLET PO ONE (15:00)
--- NOTE | 2017-04-01 15:07 | RAD ---
EXAM: Right knee, 3 views. HISTORY: Pain. COMPARISON: None. FINDINGS: Frontal, lateral and oblique views of the right knee are obtained. There is mild medial compartment joint space narrowing and medial compartment predominant tricompartmental spurring. There is a tiny joint loose body or intra-articular osteophyte projecting over the medial tibial spine. There is no significant joint effusion. IMPRESSION: 1. Mild medial compartment predominant tricompartmental osteoarthritis of the right knee. 2. No acute osseous finding.
[2017-04-01] MEDS ORDERED: HYDR-971 PO (15:27)
== END 2017-04-01 15:50 | disposition home or self-care (01) ==
LOC: ER 14:18
DX: S89.91XA Unspecified injury of right lower leg, initial encounter (principal); M17.0 Bilateral primary osteoarthritis of knee; G89.29 Other chronic pain; E03.9 Hypothyroidism, unspecified; Z88.2 Allergy status to sulfonamides; X50.9XXA Other and unspecified overexertion or strenuous movements or postures, initial encounter; Y93.89 Activity, other specified; Y99.0 Civilian activity done for income or pay; Y92.89 Other specified places as the place of occurrence of the external cause
CPT/HCPCS: 73562; 99284

== ENCOUNTER → 2017-07-10 | Day surgery (SDC) | payer BC ==
[~2017-07-10] MED LIST changes: -AMOX500C PO; -BUPR150T15 PO; -CYCL5TAB PO; -HYDR-971 PO; +HYDROmorphone 2 MG/ML VIAL IV; -LEVE500T56 PO; -LEVO125T5 PO; +LIDOCAINE 1% PF 2 ML VIAL. ID; +MORPHINE SULFATE 2 MG/ML DISP.SYRIN. IV; +ONDANSETRON PF 4 MG/2 ML VIAL. IV; -PENI500T PO; +PROCHLORPERAZINE 10 MG/2 ML VIAL. IV; +PROPOFOL 40 ML IV; -SERT50TA PO; -TRAM50TA PO; +fentaNYL PF VIAL 100 MCG/2 ML VIAL IV
[2017-07-10] MEDS: IV RINGERS,LACTATED 1000ML 1,000 ML IV (08:25)
== END | disposition home or self-care (01) ==
LOC: ENDOS 07:59
DX: D50.0 Iron deficiency anemia secondary to blood loss (chronic) (principal); E03.9 Hypothyroidism, unspecified; E78.5 Hyperlipidemia, unspecified; F32.9 Major depressive disorder, single episode, unspecified; M19.90 Unspecified osteoarthritis, unspecified site
CPT/HCPCS: 43239; 88305; J2704

== ENCOUNTER 2017-08-12 11:46 | Emergency (ER) | payer BC ==
[2017-08-12 12:29] LABS: BILIRUBIN,URINE NEGATIVE (NEG); CLARITY,URINE CLEAR; GLUCOSE,URINE NEGATIVE (NEG); NITRITE,URINE POSITIVE (NEG); PH,URINE 6.5; PROTEIN,URINE NEGATIVE (NEG-TRACE); UROBILINOGEN,URINE 0.2 mg/dL (0.2 mg/dL)
[2017-08-12 12:38] LABS: BACTERIA,URINE FEW /HPF (0-FEW); COLOR,URINE YELLOW; RBC,URINE OCC /HPF (0-2); SQUAMOUS EPITHELIAL CELL,UR FEW /LPF
== END 2017-08-12 12:52 | disposition home or self-care (01) ==
LOC: ER 11:46
DX: N39.0 Urinary tract infection, site not specified (principal); E03.9 Hypothyroidism, unspecified; Z87.440 Personal history of urinary (tract) infections; Z88.2 Allergy status to sulfonamides; Z90.711 Acquired absence of uterus with remaining cervical stump
CPT/HCPCS: 81001; 87086; 99284

== ENCOUNTER 2018-04-19 22:30 | Emergency (ER) | payer SELFPAY ==
[~2018-04-19] VITALS: Ht 165.1 cm; Wt 80.7 kg
[~2018-04-19 22:30] MED LIST changes: +AMOX500C PO; +BUPR150T15 PO; +CEPH-264 PO; +CYCL5TAB PO; +HYDR-3164 PO; -HYDROmorphone 2 MG/ML VIAL IV; +LEVE500T56 PO; +LEVO125T5 PO; -LIDOCAINE 1% PF 2 ML VIAL. ID; -MORPHINE SULFATE 2 MG/ML DISP.SYRIN. IV; -ONDANSETRON PF 4 MG/2 ML VIAL. IV; +PENI500T PO; -PROCHLORPERAZINE 10 MG/2 ML VIAL. IV; -PROPOFOL 40 ML IV; +SERT50TA PO; +TRAM50TA PO; -fentaNYL PF VIAL 100 MCG/2 ML VIAL IV
--- NOTE | 2018-04-19 23:12 | PHYS DOC ---
Past Medical History Past Medical History: Hypothyroid, Other Additional Past Medical Histor: Radiation pill for thyroid. Past Surgical History: , Hysterectomy Additional Past Surgical Histo: PARTIAL HYSTERECTOMY Alcohol Use: None Drug Use: None Adult General Chief Complaint Chief Complaint: Bilateral hand pain [facility] Patient is a 53 year old female who presents for evaluation of bilateral hand pain and weakness worsening since onset one week ago. The patient has never experienced these Sx in the past. She denies numbness and tingling in the hands. Denies recent trauma, fall or injury. She has attempted Tylenol and Ibuprofen without relief. Pain is worse with using the hands and opening jars. Weakness is secondary to the pain per the patient. She has a hx of hypothyroidism and reports her thyroid medication was decreased around 10 days ago. Since this she notes the onset of diarrhea, fatigue and hair loss. She believes this change in her thyroid medication has brought about her current Sx. Review of Systems Review of Systems Constitutional: Denies fever or chills [] Eyes: Denies change in visual acuity, redness, or eye pain [] HENT: Denies nasal congestion or sore throat [] Respiratory: Denies cough or shortness of breath [] Cardiovascular: No additional information not addressed in HPI [] GI: Denies abdominal pain, nausea, vomiting, bloody stools or diarrhea [] : Denies dysuria or hematuria [] Musculoskeletal: + bilat hand and wrist pain. Denies back pain Integument: Denies rash or skin lesions [] Neurologic: Denies headache, focal weakness or sensory changes [] Endocrine: Denies polyuria or polydipsia [] All other systems were reviewed and found to be within normal limits, except as documented in this note. Allergies Allergies Allergies Coded Allergies Type Severity Reaction Last Updated Verified Sulfa (Sulfonamide Antibiotics) Allergy Severe angioedema, hives 07/10/17 Yes Physical Exam Physical Exam Constitutional: Well developed, well nourished, no acute distress, non-toxic appearance. [] HENT: Normocephalic, atraumatic, bilateral external ears normal, oropharynx moist, no oral exudates, nose normal. [] Eyes: PERRLA, EOMI, conjunctiva normal, no discharge. [] Neck: Normal range of motion, no tenderness, supple, no stridor. [] Pulmonary: Normal respiratory effort no increased work of breathing no obvious chest wall trauma Abdomen: Bowel sounds normal, soft, no tenderness, no masses, no pulsatile masses. [] Skin: Warm, dry, no erythema, no rash. [] Back: No tenderness, no CVA tenderness. [] Extremities: No cyanosis, no clubbing, ROM intact, no edema. +2/4 radial pulses bilaterallly. Good capillary refill. Negative tinels in wrists. 5/5 technology coach strength bilat. No tenderness to ROM of the digits or wrist. No TTP of the wrist. No erythema or effusion. Intact sensation throughout. Neurologic: Alert and oriented X 3, normal motor function, normal sensory function, no focal deficits noted. [] Psychologic: Affect normal, judgement normal, mood normal. [] Current Patient Data Vital Signs Vital Signs Date Time Temp Pulse Resp B/P (MAP) Pulse Ox O2 Delivery O2 Flow Rate FiO2 04/20/18 00:20 98.3 74 16 138/66 (90) 99 Room Air 98.3 EKG EKG [] Radiology/Procedures Radiology/Procedures [] Course & Med Decision Making Course & Med Decision Making Pertinent Labs and Imaging studies reviewed. (See chart for details) Assessment: 53 y/o female presents with bilateral hand pain No obvious swelling noted on examination. Patient may have a component of nonspecific arthritis possibly viral etiology query thyroid related query rheumatoid arthritis however no trauma no bony abnormality noted on physical examination patient was given a trial of prednisone. I DID TELL HER THAT we wouldn't use narcotics Dragon Disclaimer Dragon Disclaimer This electronic medical record was generated, in whole or in part, using a voice recognition dictation system. Departure Departure Impression: Primary Impression: Hand pain Disposition: 01 HOME, SELF-CARE Condition: STABLE Referrals: NO PCP (PCP) Scripts Prednisone (PREDNISONE) 50 Mg Tablet 1 TAB PO DAILY, #5 TAB Prov: JOHAN LERNER MD 04/20/18 JOHAN LERNER MD Apr 19, 2018 23:12
[2018-04-20] MEDS ORDERED: PRED50TA PO (00:10)
[2018-04-20 00:20] VITALS: BP 138/66
== END 2018-04-20 00:31 | disposition home or self-care (01) ==
LOC: ER 22:30
DX: M79.641 Pain in right hand (principal); M79.642 Pain in left hand; M25.532 Pain in left wrist; M25.531 Pain in right wrist; R53.1 Weakness; R19.7 Diarrhea, unspecified; R53.83 Other fatigue; E03.9 Hypothyroidism, unspecified; Z98.890 Other specified postprocedural states; Z90.710 Acquired absence of both cervix and uterus; Z88.2 Allergy status to sulfonamides
CPT/HCPCS: 99283

== ENCOUNTER 2019-03-15 18:02 | Emergency (ER) | payer BC ==
[~2019-03-15] VITALS: Ht 162.6 cm; Wt 87.1 kg
[~2019-03-15 18:02] MED LIST changes: +MELO7.5T29 PO; +PRED50TA PO
[2019-03-15] MEDS ORDERED: IV NORMAL SALINE 1000ML BAG 1,000 ML IV ONE (18:30)
[2019-03-15 18:34] LABS: BILIRUBIN,URINE NEGATIVE (NEG); CLARITY,URINE CLOUDY; COLOR,URINE YELLOW; NITRITE,URINE POSITIVE (NEG); PROTEIN,URINE 100 mg/dL (NEG-TRACE); UROBILINOGEN,URINE 0.2 mg/dL (0.2 mg/dL)
[2019-03-15 18:41] LABS: HYALINE CASTS, URINE MODERATE /HPF; SQUAMOUS EPITHELIAL CELL,UR FEW /LPF
[2019-03-15 18:42] LABS: BACTERIA,URINE MODERATE /HPF (0-FEW); RBC,URINE FIELD OBSCURED /HPF (0-2); WBC,URINE TNTC /HPF (0-4)
[2019-03-15] MEDS ORDERED: KETOROLAC 15 MG/ML VIAL. IVP ONE (19:00)
[2019-03-15] MEDS ORDERED: ONDANSETRON PF 4 MG/2 ML VIAL. IVP ONE (19:00)
[2019-03-15] MEDS ORDERED: FAMOTIDINE 20 MG/2 ML VIAL IVP ONE (19:00)
[2019-03-15 19:05] LABS: BASO # 0.1 x10^3/uL (0.0-0.2); BASO % 1 % (0-3); EOS % 0 % (0-3); HEMATOCRIT 28.7 % (36.0-47.0); HEMOGLOBIN 9.3 g/dL (12.0-15.5); LYMPH % 6 % (24-48); MEAN CORPUSCULAR HEMOGLOBIN 28 pg (25-35); MEAN CORPUSCULAR HGB CONC 32 g/dL (31-37); MEAN CORPUSCULAR VOLUME 87 fL (79-100); MONO # 0.6 x10^3/uL (0.0-1.1); MONO % 3 % (0-9); NEUT # 15.4 x10^3/uL (1.8-7.7); NEUT % 90 % (31-73); PLATELET COUNT 358 x10^3/uL (140-400); RED BLOOD COUNT 3.31 x10^6/uL (3.50-5.40); RED CELL DISTRIBUTION WIDTH 13.2 % (11.5-14.5); WHITE BLOOD COUNT 17.1 x10^3/uL (4.0-11.0)
[2019-03-15 19:09] LABS: CALCIUM 8.8 mg/dL (8.5-10.1); CREATININE 1.4 mg/dL (0.6-1.0); GFR 47.8; POTASSIUM 3.3 mmol/L (3.5-5.1)
[2019-03-15 19:15] LABS: ALBUMIN 3.7 g/dL (3.4-5.0); ALBUMIN/GLOBULIN RATIO 0.8 (1.0-1.7); MAGNESIUM 1.8 mg/dL (1.8-2.4); TOTAL BILIRUBIN 0.2 mg/dL (0.2-1.0); TOTAL PROTEIN 8.4 g/dL (6.4-8.2)
[2019-03-15] MEDS ORDERED: cefTRIAXone IV Push 1 GM VIAL. IVP ONE (19:30)
--- NOTE | 2019-03-15 19:58 | RAD ---
Exam: CT abdomen and pelvis without contrast INDICATION: Right flank pain TECHNIQUE: Sequential axial images through the abdomen and pelvis obtained without IV contrast. Sagittal and coronal reformatted images were reconstructed from the axial data and reviewed. Comparisons: None FINDINGS: Visualized lung bases are clear. No pleural effusion. Evaluation of the solid organs is limited secondary to noncontrast technique. Liver, spleen, pancreas and adrenals are unremarkable. Gallstones are noted within the gallbladder. There is mild right-sided perinephric inflammation. No renal or ureteral calculi are identified. No hydronephrosis. Bladder is distended and appears thin-walled. Uterus is absent. No abnormal adnexal mass. Large and small bowel are unremarkable. Appendix is normal. No free intra-abdominal air or fluid. No obstruction. Abdominal aorta has a normal course and caliber. No enlarged abdominal lymph nodes are identified. No suspicious osseous lesions or acute fractures. IMPRESSION: Right-sided perinephric inflammation without renal or ureteral calculi are identified. Findings could relate to infection. Correlate with urinalysis. Exposure: One or more of the following in the visualized dose reduction techniques were utilized for this examination: 1. Automated exposure control 2. Adjustment of the MA and/or KV according to patient size 3. Use of iterative of reconstructive technique Electronically signed by: Lilia Castillo MD (03/15/2019 7:55 PM) [facility]
--- NOTE | 2019-03-15 20:14 | PHYS DOC ---
Past Medical History Past Medical History: Hypothyroid, Other Past Surgical History: , Hysterectomy Additional Past Surgical Histo: PARTIAL HYSTERECTOMY Additional Information: Nonsmoker Alcohol Use: None Drug Use: None Adult General Chief Complaint Chief Complaint: ABDOMINAL PAIN HPI HPI 53-year-old female presents with report of right flank pain x 2 days with ra diation to lower abdomen. Reports sharp in nature. Reports some associated nausea and chills. Reports dysuria. Patient does report she recently started taking Pyridium. Also reports concern for "milky white" vaginal discharge which is malodorous. Hx of prior hysterectomy but reports retained one of her ovaries. Review of Systems Review of Systems Constitutional: Denies fever; reports chills Eyes: Denies redness or eye pain HENT: Denies nasal congestion or sore throat Respiratory: Denies cough or shortness of breath Cardiovascular: Denies chest pain or palpitations GI: Reports abdominal pain and nausea; denies vomiting : Reports dysuria; denies hematuria Musculoskeletal: Denies back pain or joint pain Integument: Denies rash or skin lesions Neurologic: Denies headache, focal weakness or sensory changes Complete systems were reviewed and found to be within normal limits, except as documented in this note. Current Medications Current Medications Current Medications Medications (Trade) Dose Ordered Sig/Evelyne Start Time Stop Time Status Last Admin Dose Admin Acetaminophen/ Hydrocodone Bitart (Lortab 5/325) 1 tab 1X ONCE 03/15/19 22:30 03/15/19 22:20 DC 03/15/19 22:11 1 TAB Azithromycin (Zithromax) 1,000 mg 1X ONCE 03/15/19 20:15 03/15/19 20:31 DC 03/15/19 21:01 1,000 MG Ceftriaxone Sodium (Rocephin Im) 250 mg 1X ONCE 03/15/19 20:15 03/15/19 20:31 DC 03/15/19 21:01 250 MG Ceftriaxone Sodium (Rocephin) 1 gm 1X ONCE 03/15/19 19:30 03/15/19 19:34 DC 03/15/19 19:43 1 GM Famotidine (Pepcid Vial) 20 mg 1X ONCE 03/15/19 19:00 03/15/19 19:11 DC 03/15/19 19:29 20 MG Ketorolac Tromethamine (Toradol 15mg Vial) 15 mg 1X ONCE 03/15/19 19:00 03/15/19 19:11 DC 03/15/19 19:29 15 MG Ondansetron HCl (Zofran) 4 mg 1X ONCE 03/15/19 19:00 03/15/19 19:11 DC 03/15/19 19:29 4 MG Sodium Chloride 1,000 ml @ 1,000 mls/hr 1X ONCE 03/15/19 18:30 03/15/19 19:29 DC 03/15/19 19:02 1,000 MLS/HR Allergies Allergies Allergies Coded Allergies Type Severity Reaction Last Updated Verified Sulfa (Sulfonamide Antibiotics) Allergy Severe angioedema, hives 07/10/17 Yes Physical Exam Physical Exam Constitutional: Well developed, well nourished, no acute distress, non-toxic appearance HENT: Normocephalic, atraumatic, oropharynx moist Eyes: Conjunctiva normal, no discharge Neck: Normal range of motion, no tenderness, supple Cardiovascular: Heart rate normal, regular rhythm Lungs & Thorax: Bilateral breath sounds clear to auscultation, no wheezing Abdomen: Soft, RLQ tenderness 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, external genitalia normal, vaginal vault with scant white discharge, post hysterectomy, unable to palpate ovaries Skin: Warm, dry, no erythema, no rash Back: No midline tenderness, right CVA tenderness Extremities: No tenderness, ROM intact, no edema, straight leg raise does not reproduce pain Neurologic: Alert and oriented X 3, no focal deficits noted Psychologic: Affect normal, judgement normal Current Patient Data Vital Signs Vital Signs Date Time Temp Pulse Resp B/P (MAP) Pulse Ox O2 Delivery O2 Flow Rate FiO2 03/15/19 22:11 20 97 Room Air 03/15/19 21:55 116 130/84 (99) 03/15/19 18:33 98.5 98.5 Lab Values Laboratory Tests Test 03/15/19 18:30 03/15/19 18:48 03/15/19 20:20 Urine Collection Type Unknown Urine Color Yellow Urine Clarity Cloudy Urine pH 6.0 Urine Specific [place] 1.010 Urine Protein 100 mg/dL (NEG-TRACE) Urine Glucose (UA) Negative mg/dL (NEG) Urine Ketones (Stick) Negative mg/dL (NEG) Urine Blood Large (NEG) Urine Nitrite Positive (NEG) Urine Bilirubin Negative (NEG) Urine Urobilinogen Dipstick 0.2 mg/dL (0.2 mg/dL) Urine Leukocyte Esterase Large (NEG) Urine RBC Field obscured /HPF (0-2) Urine WBC Tntc /HPF (0-4) Urine Squamous Epithelial Cells Few /LPF Urine Bacteria Moderate /HPF (0-FEW) Urine Hyaline Casts Moderate /HPF Urine Mucus Slight /LPF White Blood Count 17.1 x10^3/uL (4.0-11.0) H Red Blood Count 3.31 x10^6/uL (3.50-5.40) L Hemoglobin 9.3 g/dL (12.0-15.5) L Hematocrit 28.7 % (36.0-47.0) L Mean Corpuscular Volume 87 fL (79-100) Mean Corpuscular Hemoglobin 28 pg (25-35) Mean Corpuscular Hemoglobin Concent 32 g/dL (31-37) Red Cell Distribution Width 13.2 % (11.5-14.5) Platelet Count 358 x10^3/uL (140-400) Neutrophils (%) (Auto) 90 % (31-73) H Lymphocytes (%) (Auto) 6 % (24-48) L Monocytes (%) (Auto) 3 % (0-9) Eosinophils (%) (Auto) 0 % (0-3) Basophils (%) (Auto) 1 % (0-3) Neutrophils # (Auto) 15.4 x10^3/uL (1.8-7.7) H Lymphocytes # (Auto) 1.0 x10^3/uL (1.0-4.8) Monocytes # (Auto) 0.6 x10^3/uL (0.0-1.1) Eosinophils # (Auto) 0.0 x10^3/uL (0.0-0.7) Basophils # (Auto) 0.1 x10^3/uL (0.0-0.2) Segmented Neutrophils % 60 % (35-66) Band Neutrophils % 29 % (0-9) H Lymphocytes % 5 % (24-48) L Monocytes % 5 % (0-10) Basophils % 1 % (0-3) Platelet Estimate Adequate (ADEQUATE) Hypochromasia Slight Anisocytosis Slight Stomatocytes Few Sodium Level 140 mmol/L (136-145) Potassium Level 3.3 mmol/L (3.5-5.1) L Chloride Level 103 mmol/L (98-107) Carbon Dioxide Level 25 mmol/L (21-32) Anion Gap 12 (6-14) Blood Urea Nitrogen 17 mg/dL (7-20) Creatinine 1.4 mg/dL (0.6-1.0) H Estimated GFR (Cockcroft-Gault) 47.8 BUN/Creatinine Ratio 12 (6-20) Glucose Level 96 mg/dL (70-99) Calcium Level 8.8 mg/dL (8.5-10.1) Magnesium Level 1.8 mg/dL (1.8-2.4) Total Bilirubin 0.2 mg/dL (0.2-1.0) Aspartate Amino Transferase (AST) 26 U/L (15-37) Alanine Aminotransferase (ALT) 24 U/L (14-59) Alkaline Phosphatase 58 U/L (46-116) Total Protein 8.4 g/dL (6.4-8.2) H Albumin 3.7 g/dL (3.4-5.0) Albumin/Globulin Ratio 0.8 (1.0-1.7) L Lipase 74 U/L (73-393) Lactic Acid Level 1.3 mmol/L (0.4-2.0) Laboratory Tests 03/15/19 18:48 Laboratory Tests 03/15/19 18:48 Microbiology 03/15/19 Wet Prep - Final, Complete EKG EKG [] Radiology/Procedures Radiology/Procedures PROCEDURE: CT ABDOMEN PELVIS WO CONTRAST Exam: CT abdomen and pelvis without contrast INDICATION: Right flank pain TECHNIQUE: Sequential axial images through the abdomen and pelvis obtained without IV contrast. Sagittal and coronal reformatted images were reconstructed from the axial data and reviewed. Comparisons: None FINDINGS: Visualized lung bases are clear. No pleural effusion. Evaluation of the solid organs is limited secondary to noncontrast technique. Liver, spleen, pancreas and adrenals are unremarkable. Gallstones are noted within the gallbladder. There is mild right-sided perinephric inflammation. No renal or ureteral calculi are identified. No hydronephrosis. Bladder is distended and appears thin-walled. Uterus is absent. No abnormal adnexal mass. Large and small bowel are unremarkable. Appendix is normal. No free intra-abdominal air or fluid. No obstruction. Abdominal aorta has a normal course and caliber. No enlarged abdominal lymph nodes are identified. No suspicious osseous lesions or acute fractures. IMPRESSION: Right-sided perinephric inflammation without renal or ureteral calculi are identified. Findings could relate to infection. Correlate with urinalysis. Exposure: One or more of the following in the visualized dose reduction techniques were utilized for this examination: 1. Automated exposure control 2. Adjustment of the MA and/or KV according to patient size 3. Use of iterative of reconstructive technique Electronically signed by: Lilia Castillo MD (03/15/2019 7:55 PM) [facility] Course & Med Decision Making Course & Med Decision Making Pertinent Labs and Imaging studies reviewed. (See chart for details) Patient presents with history of present illness and physical exam concerning for possible pyelonephritis. History of associated nausea, chills, and dysuria. Labs obtained and posted to chart. UA consistent for infection. Empiric antibiotics initiated. CT abdomen/pelvis confirms signs of pyelonephritis. Pelvic exam performed. Chlamydia/gonorrhea cultures pending. Empiric antibiotic therapy provided. Wet mount negative. Patient stable for discharge with outpatient follow-up with PCP. Discussed findings and plan with patient, who acknowledges understanding and agreement. Dragon Disclaimer Dragon Disclaimer This electronic medical record was generated, in whole or in part, using a voice recognition dictation system. Departure Departure Impression: Primary Impression: Pyelonephritis Disposition: HOME, SELF-CARE Condition: STABLE Referrals: NO PCP (PCP) Patient Instructions: Pyelonephritis, Adult, [id number] Scripts Hydrocodone/Apap 5-325 (NORCO 5-325 TABLET) 1 Each Tablet 0.5-1 TAB PO PRN Q6HRS PRN for PAIN, #10 TAB 0 Refills Prov: TERA MARRERO DO 03/15/19 Cephalexin (KEFLEX) 500 Mg Capsule 500 MG PO TID for 7 Days, #21 CAP Prov: TERA MARRERO DO 03/15/19 Ondansetron (ONDANSETRON ODT) 4 Mg Tab.rapdis 1 TAB PO PRN Q6-8HRS PRN for NAUSEA, #16 TAB Prov: TERA MARRERO DO 03/15/19 TERA MARRERO DO Mar 15, 2019 20:14
[2019-03-15] MEDS ORDERED: AZITHROMYCIN 250 MG TABLET. PO ONE (20:15)
[2019-03-15] MEDS ORDERED: cefTRIAXone IM 250 MG VIAL IM ONE (20:15)
[2019-03-15 20:30] LABS: % BANDS 29 % (0-9); % BASOS 1 % (0-3); % LYMPHS 5 % (24-48); % MONOS 5 % (0-10); % SEGS 60 % (35-66); ANISOCYTOSIS SLIGHT; HYPOCHROMIA SLIGHT; PLT ESTIMATE ADEQUATE (ADEQUATE); STOMATOCYTES FEW
[2019-03-15] MEDS ORDERED: CEPH-264 PO (20:31)
[2019-03-15] MEDS ORDERED: ONDA4TAB12 PO (20:31)
[2019-03-15 21:55] VITALS: BP 130/84
[2019-03-15] MEDS ORDERED: HYDR-3164 PO (21:57)
[2019-03-15] MEDS ORDERED: HYDROcodone/APAP 5/325MG 1 TAB TABLET PO ONE (22:30)
[2019-03-17 16:09] LABS: GC PROBE Negative (Negative)
== END 2019-03-15 22:15 | disposition home or self-care (01) ==
LOC: ER 18:02
DX: N12 Tubulo-interstitial nephritis, not specified as acute or chronic (principal); E03.9 Hypothyroidism, unspecified; Z90.711 Acquired absence of uterus with remaining cervical stump; Z88.2 Allergy status to sulfonamides
CPT/HCPCS: 36415; 74176; 80053; 81001; 83605; 83690; 83735; 85007; 85025; 87086; 87186; 87491; 87591; 96372; 96374; 96375; 99285; J0696; J1885; J2405; J3490; J7030; Q0111; Q0144

== ENCOUNTER 2019-09-14 19:21 | Emergency (ER) | payer BC, OTHER ==
[~2019-09-14] VITALS: Ht 162.6 cm; Wt 84.0 kg
[~2019-09-14 19:21] MED LIST changes: +ONDA4TAB12 PO
[2019-09-14 19:24] VITALS: BP 147/87
--- NOTE | 2019-09-14 19:46 | PHYS DOC ---
Past Medical History Past Medical History: Hypothyroid, Other Past Surgical History: , Hysterectomy Additional Past Surgical Histo: PARTIAL HYSTERECTOMY Smoking Status: Never Smoker Alcohol Use: None Drug Use: None General Adult EDM: Chief Complaint: KNEE SWELLING HPI: HPI: Patient is a 54 year old female who presents with complaint of bilateral knee pain. Patient states is been present for the last few days. She denies any injuries. Patient states that pain is worsened with weightbearing and if she accidentally bumped her knee. She states the left knee is worsened the right. She is been taking naproxen as well as meloxicam without relief. She denies any chest pain or shortness of breath. She also denies any cough. She describes the pain as sharp, stating that shoots through her knees.[] Review of Systems: Review of Systems: Constitutional: Denies fever or chills. [] Respiratory: Denies cough or shortness of breath. [] Cardiovascular: Denies chest pain or edema. [] Musculoskeletal: Complains of bilateral knee pain. [] Integument: Denies rash. [] Neurologic: Denies headache, focal weakness or sensory changes. [] Heart Score: Risk Factors: Risk Factors: DM, Current or recent (<one month) smoker, HTN, HLP, family history of CAD, obesity. Risk Scores: Score 0 - 3: 2.5% MACE over next 6 weeks - Discharge Home Score 4 - 6: 20.3% MACE over next 6 weeks - Admit for Clinical Observation Score 7 - 10: 72.7% MACE over next 6 weeks - Early Invasive Strategies Allergies: Allergies: Allergies Coded Allergies Type Severity Reaction Last Updated Verified Sulfa (Sulfonamide Antibiotics) Allergy Severe angioedema, hives 07/10/17 Yes Physical Exam: PE: Constitutional: Well developed, well nourished, no acute distress, non-toxic appearance. [] Cardiovascular: Regular rate and rhythm[] Lungs & Thorax: Bilateral breath sounds clear to auscultation [] Skin: Warm, dry, no erythema, no rash. [] Extremities: Examination of the chest demonstrates what appears to be mild joint effusions, left, greater than right. [] Neurologic: Alert and oriented X 3, no focal deficits noted. [] EKG: EKG: [] Radiology/Procedures: Radiology/Procedures: [] Course & Med Decision Making: Course & Med Decision Making Pertinent Labs and Imaging studies reviewed. (See chart for details) [] Ramón Disclaimer: Dragon Disclaimer: This electronic medical record was generated, in whole or in part, using a voice recognition dictation system. Departure Departure Impression: Primary Impression: Knee pain, chronic Qualified Codes: M25.561 - Pain in right knee; M25.562 - Pain in left knee; G89.29 - Other chronic pain Additional Impression: Osteoarthritis Qualified Codes: M17.0 - Bilateral primary osteoarthritis of knee Disposition: HOME, SELF-CARE Condition: STABLE Referrals: UNKNOWN PCP NAME (PCP) Patient Instructions: Chronic Pain, Knee Pain, Osteoarthritis Scripts Tramadol Hcl (TRAMADOL HCL) 50 Mg Tablet 50 MG PO Q6HRS PRN for PAIN, #10 TAB Prov: CALVIN KEY Jr. DO 09/14/19 CALVIN KEY Jr. DO Sep 14, 2019 19:46
[2019-09-14] MEDS ORDERED: TRAM50TA PO (20:32)
--- NOTE | 2019-09-14 20:33 | RAD ---
Examination: 3 views of the bilateral knees HISTORY: History of bilateral knee pain COMPARISON: None available FINDINGS: Mild to moderate joint space loss identified in the medial, lateral compartment femoral compartments of the bilateral knees. Small osteophyte formation identified in the medial compartment of the bilateral kidneys likely degenerative changes. IMPRESSION: Mild to moderate degenerative changes bilateral knee joints. Electronically signed by: Dimitrios Montez MD (09/14/2019 8:30 PM) [id number]
== END 2019-09-14 21:05 | disposition home or self-care (01) ==
LOC: ER 19:21
DX: M25.561 Pain in right knee (principal); M25.562 Pain in left knee; G89.29 Other chronic pain; M17.0 Bilateral primary osteoarthritis of knee; E03.9 Hypothyroidism, unspecified; Z90.711 Acquired absence of uterus with remaining cervical stump; Z88.2 Allergy status to sulfonamides
CPT/HCPCS: 73562; 99283